=== PATIENT | female | born 1980 | race African-American/Black ===

== ENCOUNTER 2016-10-25 15:35 | Emergency (ER) | payer OTHER ==
[2016-10-25 15:45] VITALS: BP 159/101; PULSE 91; TEMP 98.2; BMI 35.4
[2016-10-25] MEDS ORDERED: predniSONE 20 MG TABLET (UD) PO ONE (16:32)
[2016-10-25] MEDS ORDERED: predniSONE 20 MG TABLET (UD) ONE (16:35)
[2016-10-25] MEDS ORDERED: ALBUTEROL SO4 2.5/IPRATROPIUM 0.5 INH SOL 3 ML VIAL.NEB. NEB ONE (16:36)
[2016-10-25] MEDS: ALBUTEROL SO4 2.5/IPRATROPIUM 0.5 INH SOL 3 ML VIAL.NEB. NEB SCH ×4 (16:39→17:41)
--- NOTE | 2016-10-25 16:41 | PDOC ---
History of Present Illness - General Chief Complaint: Asthma Stated Complaint: DIFFICULTY BREATHING Time Seen by Provider: 10/25/16 16:11 History Source: Patient - History of Present Illness Timing/Duration: reports: this afternoon Associated Symptoms: reports: shortness of breath. denies: chest pain/soreness , cough, fever/chills, wheezing Past History - Past Medical History Allergies/Adverse Reactions: Allergies Allergy/AdvReac Type Severity Reaction Status Date / Time No Known Allergies Allergy Verified 10/25/16 15:43 Home Medications: Ambulatory Orders Albuterol Sulfate Inhaler - [Ventolin Hfa Inhaler -] 1 - 2 inh PO Q4H #1 inhaler 10/25/16 Prednisone [Deltasone -] 40 mg PO DAILY #8 tablet 10/25/16 Anemia: No Asthma: Yes Suicide Attempt (Hx): No Seizures: No - Psycho/Social/Smoking Cessation Hx Anxiety: No Suicidal Ideation: No Smoking Status: Yes Smoking History: Never smoked Have you smoked in the past 12 months: No Number of Cigarettes Smoked Daily: 1 Information on smoking cessation initiated: No Hx Alcohol Use: No Drug/Substance Use Hx: No Substance Use Type: None Review of Systems - Review of Systems Constitutional: No: Chills, Fever Respiratory: Yes: Shortness of Breath. No: Cough, Wheezing Cardiac (ROS): No: Chest Pain, Lightheadedness, Palpitations Psychiatric: Yes: Other (no SI) *Physical Exam - Vital Signs Last Vital Signs Temp Pulse Resp BP Pulse Ox 98.2 F 91 H 20 159/101 98 10/25/16 15:43 10/25/16 15:43 10/25/16 15:43 10/25/16 15:43 10/25/16 15:43 - Physical Exam General Appearance: Yes: Appropriately Dressed. No: Apparent Distress HEENT: positive: Normal Voice Neck: positive: Supple Respiratory/Chest: positive: Lungs Clear, Normal Breath Sounds. negative: Respiratory Distress Cardiovascular: positive: Regular Rate, S1, S2 Extremity: positive: Normal Inspection Integumentary: positive: Dry, Warm Neurologic: positive: Fully Oriented, Alert, Other (appears disheveled w/ bizarre affect ) Medical Decision Making - Medical Decision Making 10/25/16 16:34 36-year-old obesed female, undomiciled, DM, HTN not on medications "because doctors do want to see me" as per pt, unclear psych hx (unclear from prior documentation/visits but possible schizophrenia vs bipolar based on affect), pt denies psychiatric illness at this time and then states "it's free medical knowledge", here w/ sob today similar to her asthma and states she ran out of her ventolin. No chest tightness or wheezing. Denies admissions for asthma or intubation. Pt requesting "a room" upstairs as she does not have a place to go and also requesting "a hot meal" in ED See exam ?True asthma exacerbation vs malingering (has unclear psych hx and odd affect in ED) Hypertensive (not on meds), stable otherwise w/ clear chest/lungs -nebs -pred -reassess 10/25/16 16:43 10/25/16 16:52 10/25/16 16:53 10/25/16 17:39 Pt improved w/ nebs. Lungs remain clear and able to ambulate without sob. Evaluated by ED SW who gave pt some resources. Pt also given psych and PMD f/u 10/25/16 17:44 *DC/Admit/Observation/Transfer Diagnosis at time of Disposition: Asthma attack - Discharge Dispostion Disposition: HOME Condition at time of disposition: Improved - Prescriptions Prescriptions: Prednisone [Deltasone -] 40 mg PO DAILY #8 tablet Albuterol Sulfate Inhaler - [Ventolin Hfa Inhaler -] 1 - 2 inh PO Q4H #1 inhaler - Referrals Referrals: Adin Li MD [Staff Physician] - Sena Ross MD [Staff Physician] - - Patient Instructions Printed Discharge Instructions: Asthma -- Adult Additional Instructions: Please follow up with Dr Li for management of your chronic medical conditions Please follow up with Dr Ross of psychiatry
== END 2016-10-25 17:42 | disposition home or self-care (01) ==
LOC: JERFT 15:35
DX: J45.901 Unspecified asthma with (acute) exacerbation (principal); I10 Essential (primary) hypertension; E11.9 Type 2 diabetes mellitus without complications
CPT/HCPCS: 99281-25

== ENCOUNTER 2017-02-27 11:13 | Emergency (ER) | payer OTHER ==
[2017-02-27 11:26] VITALS: BP 156/97; PULSE 100; TEMP 98.8; BMI 31.8
--- NOTE | 2017-02-27 12:57 | PDOC ---
History of Present Illness - General Chief Complaint: Asthma Stated Complaint: SOB Time Seen by Provider: 02/27/17 12:48 History Source: Patient Exam Limitations: No Limitations - History of Present Illness Initial Comments: 02/27/17 12:58 Patient is a 36 yo F with hx of asthma, bipolar/schizophrenia presents to [facility] with "shortness of breath" requesting nebulizer treatment and "prednisone to increase the oxygen in my brain." Currently does not have any albuterol. SOCIAL HISTORY: Does smoke, no alcohol or illicit drug use SURGICAL HISTORY: Denies] Past Medical History: Asthma, schizophrenia and bipolar disorder patient denies all Allergies: No known allergies PCP, patient reports her doctor does not want to see her. Review of Systems GENERAL/CONSTITUTIONAL: [No fever or chills. No weakness. No weight change.] HEAD, EYES, EARS, NOSE AND THROAT: [No change in vision. No ear pain or discharge. No sore throat. ] CARDIOVASCULAR: [No chest pain or shortness of breath.] RESPIRATORY: [No cough, reports wheezing, no hemoptysis.] GASTROINTESTINAL: [No nausea, vomiting, diarrhea or constipation. No rectal bleeding.] GENITOURINARY: [No dysuria, frequency, or change in urination.] MUSCULOSKELETAL: [No joint or muscle swelling or pain. No neck or back pain.] SKIN : [No rash or easy bruising.] NEUROLOGIC: [No headache, vertigo, loss of consciousness, or loss of sensation.] PSYCHIATRIC: [No depression or anxiety.] ENDOCRINE: [No increased thirst. No abnormal weight change.] HEMATOLOGIC/LYMPHATIC: [No anemia, easy bleeding, or history of blood clots.] ALLERGIC/IMMUNOLOGIC: [No hives or skin allergy. No latex allergy.] Physical Exam: GENERAL: [The patient is awake, alert, and fully oriented, in no acute distress. ] EYES: [Pupils equal, round and reactive to light, extraocular movements intact, sclera anicteric, conjunctiva clear.] ENT: [Ears normal, nares patent, oropharynx clear without exudates. Moist mucous membranes. No uvula deviation] NECK: [Normal range of motion, supple without lymphadenopathy, JVD, or masses.] LUNGS: [Breath sounds equal, clear to auscultation bilaterally. No wheezes, and no crackles.] HEART: [Regular rate and rhythm, normal S1 and S2 without murmur, rub or gallop. ] ABDOMEN: [Soft, nontender, normoactive bowel sounds. No guarding, no rebound. No masses. No bruising or abrasions] MUSCULOSKELETAL: [Normal range of motion, no edema. No clubbing or cyanosis. No cords, erythema, or tenderness. No CVA Tenderness with fist.] NEUROLOGICAL: [Cranial nerves II through XII grossly intact. Normal speech, normal gait.] SKIN: [Warm, Dry, normal turgor, no rashes or lesions noted.] Past History - Past Medical History Allergies/Adverse Reactions: Allergies Allergy/AdvReac Type Severity Reaction Status Date / Time No Known Allergies Allergy Verified 02/27/17 11:21 Home Medications: Ambulatory Orders Albuterol Sulfate Inhaler - [Ventolin HFA Inhaler -] 1 - 2 inh PO Q4H #1 inhaler 02/27/17 Anemia: No Asthma: Yes COPD: No DVT: No Psychiatric Problems: Yes Seizures: No - Suicide/Smoking/Psychosocial Hx Smoking Status: Yes Smoking History: Never smoked Have you smoked in the past 12 months: No Number of Cigarettes Smoked Daily: 0 Information on smoking cessation initiated: No Hx Alcohol Use: No Drug/Substance Use Hx: No Substance Use Type: None *Physical Exam - Vital Signs Last Vital Signs Temp Pulse Resp BP Pulse Ox 98.8 F 100 H 18 156/97 98 02/27/17 11:21 02/27/17 11:21 02/27/17 11:21 02/27/17 11:21 02/27/17 11:21 Medical Decision Making - Medical Decision Making 02/27/17 13:02 A/P: Patient here "requesting a pill to make her brain get more oxygen" patient noted with flight of ideas upon arrival, when asking questions patient does not answer appropriately. Requesting medication to melt fat on the back of her head and requesting Adipex-P. Patient wants to be admitted for " medication in her blood that will make her lose weight." I've advised patients she is to follow- up with scientific research associate and PMD as an outpatient for this medication. Does have history of schizophrenia and bipolar disorder denies feelings of hurting self or others. No suicidal ideation. On physical examination patient with clear lungs, no wheezing. I have explained to patient that there is no pill that will increase oxygen to her brain I will give her a Combivent treatment, then DC with albuterol since she has run out. Patient's physical examination is benign she is in no acute distress. Patient to follow-up with PMD. *DC/Admit/Observation/Transfer Diagnosis at time of Disposition: Asthma Qualifiers: Asthma severity: mild Asthma persistence: unspecified Asthma complication type : uncomplicated Qualified Code(s): J45.909 - Unspecified asthma, uncomplicated - Discharge Dispostion Disposition: HOME Condition at time of disposition: Stable Admit: No - Prescriptions Prescriptions: Albuterol Sulfate Inhaler - [Ventolin HFA Inhaler -] 1 - 2 inh PO Q4H #1 inhaler - Referrals Referrals: Terry Padron [Primary Care Provider] - - Patient Instructions Printed Discharge Instructions: Asthma -- Adult Additional Instructions: Recommend following up with her primary care doctor to discuss weight loss and medications. Albuterol as needed for wheezing Medications for asthma as needed as per primary care doctor - Post Discharge Activity
[2017-02-27] MEDS ORDERED: ALBUTEROL SO4 2.5/IPRATROPIUM 0.5 INH SOL 3 ML VIAL.NEB. NEB ONE ×2 (13:00→13:03)
== END 2017-02-27 13:28 | disposition home or self-care (01) ==
LOC: JERFT 11:13
PROC: 3E0F7GC Introduction of Other Therapeutic Substance into Respiratory Tract, Via Natural or Artificial Opening (ICD-10-PCS; principal; 2017-02-27)
DX: J45.909 Unspecified asthma, uncomplicated (principal); F31.89 Other bipolar disorder; F20.9 Schizophrenia, unspecified
CPT/HCPCS: 94640; 99281-25

== ENCOUNTER 2017-12-09 16:17 | Emergency (ER) | payer OTHER ==
[2017-12-09 16:21] VITALS: BP 164/114; PULSE 89; TEMP 97.9; BMI 37.2
[2017-12-09] MEDS ORDERED: ALBUTEROL SO4 2.5/IPRATROPIUM 0.5 INH SOL 3 ML VIAL.NEB. NEB ONE ×2 (17:05→17:39)
[2017-12-09] MEDS ORDERED: SODIUM CHLORIDE FOR INHALATION 3 ML VIAL.NEB IH ONE (17:06)
--- NOTE | 2017-12-09 17:06 | PDOC ---
History of Present Illness - General Chief Complaint: Sore Throat Stated Complaint: Asthma Time Seen by Provider: 12/09/17 16:54 - History of Present Illness Initial Comments: 12/09/17 17:05 CHIEF COMPLAINT: sore throat, "need face mask thing" HISTORY OF PRESENT ILLNESS: 36 yo F with hx of asthma, bipolar/schizophrenia [facility] with "shortness of breath" requesting "face mask treatment" and "bump on my tongue and definitely strep throat." Denies fever, chills, vomiting, diarrhea. PAST MEDICAL HISTORY: Denies past medical history FAMILY HISTORY: Denies SOCIAL HISTORY: Denies tobacco, alcohol, illicit drug use. SURGICAL HISTORY: Denies ALLERGIES: No known drug allergies REVIEW OF SYSTEMS General/Constitutional: Denies fever or chills. HEENT: "Strep throat, bump on my tongue." Denies change in vision. Denies ear pain or discharge. Cardiovascular: Denies chest pain. Respiratory: "A little shortness of breath. " PHYSICAL EXAM General Appearance: Well-appearing, appropriately dressed. No apparent distress. HEENT: No lesions, bump or nodules appreciated to tongue on exam. No exudate, swelling, or erythema to tonsils b/l. EOMI, PERRLA. No conjunctival pallor. No photophobia, scleral icterus. Respiratory/Chest: Lungs CTAB. Cardiovascular: RRR. S1, S2. Neurologic: food and beverage server II-XII intact. Fully oriented, alert. Motor strength 5/5. No appreciable EOM palsy, facial droop or sensory deficit. Past History - Past Medical History Allergies/Adverse Reactions: Allergies Allergy/AdvReac Type Severity Reaction Status Date / Time No Known Allergies Allergy Verified 12/09/17 16:21 Home Medications: Ambulatory Orders Albuterol Sulfate Inhaler - [Ventolin HFA Inhaler -] 1 - 2 inh PO Q4H #1 inhaler 02/27/17 Albuterol Sulfate Inhaler - [Ventolin HFA Inhaler -] 1 - 2 inh PO Q4H #1 inhaler 12/09/17 Benzonatate [Tessalon Pearls -] 100 mg PO TID PRN #21 capsule 12/09/17 Anemia: No Asthma: Yes COPD: No DVT: No Psychiatric Problems: Yes Seizures: No - Suicide/Smoking/Psychosocial Hx Smoking Status: Yes Smoking History: Never smoked Have you smoked in the past 12 months: No Number of Cigarettes Smoked Daily: 0 Hx Alcohol Use: No Drug/Substance Use Hx: No Substance Use Type: None *Physical Exam - Vital Signs Last Vital Signs Temp Pulse Resp BP Pulse Ox 97.9 F 89 18 164/114 H 99 12/09/17 16:19 12/09/17 16:19 12/09/17 16:19 12/09/17 16:19 12/09/17 16:19 Medical Decision Making - Medical Decision Making 12/09/17 17:09 36 yo F with hx of asthma, bipolar/schizophrenia presents to [facility] with "shortness of breath" requesting "face mask treatment" and "bump on my tongue and definitely strep throat." -saline neb treatment *DC/Admit/Observation/Transfer Diagnosis at time of Disposition: Cough - Discharge Dispostion Disposition: HOME Condition at time of disposition: Stable Decision to Admit order: No - Prescriptions Prescriptions: Albuterol Sulfate Inhaler - [Ventolin HFA Inhaler -] 1 - 2 inh PO Q4H #1 inhaler Benzonatate [Tessalon Pearls -] 100 mg PO TID PRN #21 capsule PRN Reason: Cough - Referrals Referrals: Terry Padron [Primary Care Provider] - - Patient Instructions Printed Discharge Instructions: DI for Shortness of Breath Additional Instructions: Please follow up with your primary care doctor this week. If you develop any new or worsening symptoms, please return to the ER. - Post Discharge Activity
[2017-12-09] MEDS ORDERED: LORATADINE 10 MG TABLET PO ONE (17:38)
[2017-12-09] MEDS ORDERED: LORATADINE 10 MG TABLET ONE (17:39)
== END 2017-12-09 18:09 | disposition home or self-care (01) ==
LOC: JERFT 16:17
PROC: 3E0F7GC Introduction of Other Therapeutic Substance into Respiratory Tract, Via Natural or Artificial Opening (ICD-10-PCS; principal; 2017-12-09)
PROC: 3E0F7GC Introduction of Other Therapeutic Substance into Respiratory Tract, Via Natural or Artificial Opening (ICD-10-PCS; 2017-12-09)
DX: J45.901 Unspecified asthma with (acute) exacerbation (principal); F31.9 Bipolar disorder, unspecified; F20.9 Schizophrenia, unspecified
CPT/HCPCS: 94640; 99281-25; J7620

== ENCOUNTER 2018-05-17 12:35 | Emergency (ER) | payer OTHER ==
[2018-05-17 12:42] VITALS: BP 153/98; PULSE 88; TEMP 98.7; BMI 35.4
--- NOTE | 2018-05-17 12:52 | PDOC ---
History of Present Illness - General Chief Complaint: [facility] [place] Stated Complaint: TEST Time Seen by Provider: 05/17/18 12:45 History Source: Patient Exam Limitations: No Limitations - History of Present Illness Travel History: No Initial Comments: 05/17/18 13:04 Patient came for evaluation of potential . had unprotected sex with known partner 3 days ago and was worried may be . States was not anticipating however would be okay if it turns positive. Patient denies partner with any symptoms, she denies any symptoms including no breast 10 tenderness, nausea or vomiting, or missed periods. Pain Radiation: reports: no radiation Activities at Onset: reports: none Past History - Travel Traveled outside of the country in the last 30 days: No Close contact w/someone who was outside of country & ill: No - Past Medical History Allergies/Adverse Reactions: Allergies Allergy/AdvReac Type Severity Reaction Status Date / Time No Known Allergies Allergy Verified 05/17/18 12:39 Home Medications: Ambulatory Orders Albuterol Sulfate Inhaler - [Ventolin HFA Inhaler -] 1 - 2 inh PO Q4H #1 inhaler 02/27/17 Anemia: No Asthma: Yes COPD: No DVT: No Psychiatric Problems: Yes Seizures: No - Suicide/Smoking/Psychosocial Hx Smoking Status: Yes Smoking History: Never smoked Have you smoked in the past 12 months: No Number of Cigarettes Smoked Daily: 0 Information on smoking cessation initiated: No Hx Alcohol Use: No Drug/Substance Use Hx: No Substance Use Type: None Abd/GI Specific PMHX - Complaint Specific PMHX Colitis: No Diverticulitis: No Gall Bladder Disease: No GERD: No Hepatitis: No Irritable Bowel Synd (IBS): No Pancreatitis: No GI Ulcer Disease: No Review of Systems - Review of Systems Able to Perform ROS?: Yes Is the patient limited Mohawk proficient: Yes Constitutional: Yes: See HPI. No: Symptoms Reported, Malaise, Weight Stable HEENTM: Yes: See HPI. No: Symptoms Reported Respiratory: Yes: See HPI. No: Symptoms reported, Cough Cardiac (ROS): No: Symptoms Reported ABD/GI: Yes: See HPI. No: Symptoms Reported, Nausea, Vomiting : Yes: See HPI. No: Symptoms Reported, Burning, Dysuria, Discharge, Frequency All Other Systems: Reviewed and Negative *Physical Exam - Vital Signs Last Vital Signs Temp Pulse Resp BP Pulse Ox 98.7 F 88 18 153/98 100 05/17/18 12:39 05/17/18 12:39 05/17/18 12:39 05/17/18 12:39 05/17/18 12:39 - Physical Exam General Appearance: Yes: Nourished, Appropriately Dressed, Apparent Distress HEENT: positive: BLANCA, Normal ENT Inspection, TMs Normal, Pharynx Normal Neck: positive: Supple. negative: Tender, Lymphadenopathy (R), Lymphadenopathy (L) Respiratory/Chest: positive: Lungs Clear, Normal Breath Sounds Gastrointestinal/Abdominal: positive: Normal Bowel Sounds, Soft. negative: Tender Extremity: positive: Normal Capillary Refill, Normal Inspection Integumentary: positive: Dry, Warm, Pale Neurologic: positive: manager special events II-XII NML intact, Fully Oriented, Alert, Normal Mood/ Affect, Normal Response, Motor Strength 5/5 Moderate Sedation - Procedure Monitoring Vital Signs: Procedure Monitoring Vital Signs Temperature 98.7 F 05/17/18 12:39 Pulse Rate 88 05/17/18 12:39 Respiratory Rate 18 05/17/18 12:39 Blood Pressure 153/98 05/17/18 12:39 O2 Sat by Pulse Oximetry (%) 100 05/17/18 12:39 *DC/Admit/Observation/Transfer Diagnosis at time of Disposition: Well adult exam - Discharge Dispostion Disposition: HOME Condition at time of disposition: Stable Decision to Admit order: No - Referrals Referrals: Martin Denton MD [Staff Physician] - - Patient Instructions Additional Instructions: With ST[facility] GR[facility]ER in 2-3 weeks when hormones of TODAYS TEST NEGATIVE - Post Discharge Activity
== END 2018-05-17 13:16 | disposition home or self-care (01) ==
LOC: JERFT 12:35
DX: Z32.02 Encounter for pregnancy test, result negative (principal); F99 Mental disorder, not otherwise specified
CPT/HCPCS: 84703; 99281-25

== ENCOUNTER 2018-08-10 17:54 | Emergency (ER) | payer OTHER ==
[2018-08-10 18:15] VITALS: BP 172/111; PULSE 100; TEMP 99; BMI 38.9
--- NOTE | 2018-08-10 18:31 | PDOC ---
History of Present Illness - General Chief Complaint: Cold Symptoms Stated Complaint: cough Time Seen by Provider: 08/10/18 18:09 History Source: Patient Exam Limitations: No Limitations - History of Present Illness Initial Comments: 08/10/18 18:31 38y F hx of asthma, bipolar/schizophrenia presents with sore throat, cough productive of mucus for several days without associated fever/chills, oneill, cp, n /v, hemoptysis, leg swelling, calf pain, abd pain. Pt denies any recent travel but notes that her mother had similar symptoms. ROS: General: no fever/chills HEENT: +sore throat, no nasal congestion, no headache, no ear pain RESP: +Cough prod of white sputum, denies SOB, ONEILL, hemoptysis CARD: denies cp, oneill EXT: denies leg swelling, calf pain Physical Exam: General: well appearing, no distress HEENT: mild eryhthema in posterior pharynx w/o exudates, no fullness, symetric tonislar arch, no cervical lympadenopathy CARD: rrr, no mrg PULM: cta b/l, no resp distress, speaking complete sentences ABD: soft nontender, no rebound/guarding EXT: NO edema, no calf tenderness, neg homans suspect URI will swab for strep will give robitussin for her cough PMD fu Past History - Past Medical History Allergies/Adverse Reactions: Allergies Allergy/AdvReac Type Severity Reaction Status Date / Time No Known Allergies Allergy Verified 08/10/18 18:24 Home Medications: Ambulatory Orders Albuterol Sulfate Inhaler - [Ventolin HFA Inhaler -] 1 - 2 inh PO Q4H PRN #1 inhaler 08/10/18 Anemia: No Asthma: Yes COPD: No DVT: No Psychiatric Problems: Yes Seizures: No - Suicide/Smoking/Psychosocial Hx Smoking Status: Yes Smoking History: Never smoked Have you smoked in the past 12 months: No Number of Cigarettes Smoked Daily: 0 Hx Alcohol Use: No Drug/Substance Use Hx: No Substance Use Type: None *Physical Exam - Vital Signs Last Vital Signs Temp Pulse Resp BP Pulse Ox 99 F 100 H 20 172/111 H 96 08/10/18 18:03 08/10/18 18:03 08/10/18 18:03 08/10/18 18:03 08/10/18 18:03 Medical Decision Making - Medical Decision Making 08/10/18 19:29 rapid strep negative supportive care at home I discussed the physical exam findings, ancillary test results and final diagnoses with the patient. I answered all of the patient's questions. The patient was satisfied with the care received and felt comfortable with the discharge plan and treatment plan. The patient will call their primary care physician within 24 hours to arrange follow-up and will return to the Emergency Department with any new, persistent or worsening symptoms. *DC/Admit/Observation/Transfer Diagnosis at time of Disposition: Upper respiratory infection Qualifiers: URI type: unspecified URI Qualified Code(s): J06.9 - Acute upper respiratory infection, unspecified Hypertension Qualifiers: Hypertension type: unspecified Qualified Code(s): I10 - Essential (primary) hypertension - Discharge Dispostion Disposition: HOME Condition at time of disposition: Stable Decision to Admit order: No - Prescriptions Prescriptions: Albuterol Sulfate Inhaler - [Ventolin HFA Inhaler -] 1 - 2 inh PO Q4H PRN #1 inhaler PRN Reason: Shortness Of Breath - Referrals Referrals: Tito Florian [Primary Care Provider] - - Patient Instructions Printed Discharge Instructions: DI for Viral Upper Respiratory Infection -- Adult Additional Instructions: Return to the emergency department immediately with ANY new, persistent or worsening symptoms. Take Guafenicen for your cough. Take motrin or tyelnol for your sore throat. Your Blood pressure is elevated here inthe ED today. Please follow up with your doctor to have this rechecked and for further evaluation. You MUST call and follow up with your doctor in 3-4 days for further evaluation of your symptoms. Results were discussed with you. Please make sure your doctor reviews the results of your emergency evaluation. - Post Discharge Activity
[2018-08-10] MEDS ORDERED: guaiFENesin/D-METHORPHAN HB 10 ML UNIT-DOSE CUPS ONE (18:34)
[2018-08-10] MEDS ORDERED: guaiFENesin/D-METHORPHAN HB 10 ML UNIT-DOSE CUPS PO ONE (18:34)
[2018-08-10] MEDS: guaiFENesin 200 MG/10 ML 10 ML UNIT-DOSE CUPS PO ONE ×2 (18:37)
[2018-08-10] MEDS ORDERED: ALBUTEROL SO4 0.083% IH SOL 2.5 MG/3 ML VIAL.NEB. NEB ONE ×2 (19:35→19:43)
== END 2018-08-10 19:53 | disposition home or self-care (01) ==
LOC: JERFT 17:54 → JER 17:54 → JERFT 19:53
PROC: 3E0F7GC Introduction of Other Therapeutic Substance into Respiratory Tract, Via Natural or Artificial Opening (ICD-10-PCS; principal; 2018-08-10)
DX: J06.9 Acute upper respiratory infection, unspecified (principal); I10 Essential (primary) hypertension; J45.909 Unspecified asthma, uncomplicated
CPT/HCPCS: 87070; 87077; 87880; 94640; 99281-25

== ENCOUNTER 2018-08-20 13:53 | Emergency (ER) | payer OTHER | END 2018-08-20 15:02 | disposition home or self-care (01) | LOC: JERFT 13:53 ==

== ENCOUNTER 2019-01-05 15:31 | Emergency (ER) | payer OTHER ==
[2019-01-05 15:37] VITALS: BP 150/96; PULSE 106; TEMP 98; BMI 37.2
--- NOTE | 2019-01-05 15:44 | PDOC ---
History of Present Illness - General Chief Complaint: Headache Stated Complaint: HEADACHE Time Seen by Provider: 01/05/19 15:41 - History of Present Illness Initial Comments: 01/05/19 15:43 CHIEF COMPLAINT: scalp problem HISTORY OF PRESENT ILLNESS: 38 yo F with hx of bipolar/schizophrenia [facility] with concerns of her "scalp not sticking to her skin." She states she has had the problem for 7-10 years and has seen her primary care doctor "who said he don't want to see me no more." She requests "diet pills that make the skin stick to my head better" and "an x-ray or a catscan to see what's wrong with my scalp." No recent travel or sick contacts. PAST MEDICAL HISTORY: Denies past medical history FAMILY HISTORY: Denies SOCIAL HISTORY: Denies tobacco, alcohol, illicit drug use. SURGICAL HISTORY: Denies ALLERGIES: No known drug allergies REVIEW OF SYSTEMS General/Constitutional: Denies fever or chills. Denies weakness, weight change. HEENT: "My scalp isn't sticking o my skin." Denies change in vision. Denies ear pain or discharge. Denies sore throat. Cardiovascular: Denies chest pain or shortness of breath. Respiratory: Denies cough, wheezing, or hemoptysis. Gastrointestinal: Denies nausea, vomiting, diarrhea or constipation. Denies rectal bleeding. Genitourinary: Denies dysuria, frequency, or change in urination. Musculoskeletal: Denies joint or muscle swelling or pain. Denies neck or back pain. Skin and breasts: Denies rash or easy bruising. Neurologic: Headache. Denies vertigo, loss of consciousness, or loss of sensation. PHYSICAL EXAM General Appearance: Well-appearing, appropriately dressed. No apparent distress , no intoxication. HEENT: EOMI, PERRLA, normal ENT inspection, normal voice, TMs normal, pharynx normal. No conjunctival pallor. No photophobia, scleral icterus. Neck: Supple. Trachea midline. No tenderness, rigidity, carotid bruit, stridor , lymphadenopathy, or thyromegaly. Respiratory/Chest: Lungs CTAB. No shortness of breath, chest tenderness, respiratory distress, accessory muscle use. No crackles, rales, rhonchi, stridor , wheezing, dullness Cardiovascular: RRR. S1, S2. No JVD, murmur, bradycardia, tachycardia. Vascular Pulses: Dorsalis-Pedis (R): 2+, Dorsalis-Pedis (L): 2+ Gastrointestinal/Abdominal: Normal bowel sounds. Abdomen soft, non-distended. No tenderness or rebound tenderness. No organomegaly, pulsatile mass, guarding , hernia, hepatomegaly, splenomegaly. Lymphatic: No adenopathy, tenderness. Musculoskeletal/Extremities: Normal inspection. FROM of all extremities, normal capillary refill. Pelvis Stable. No CVA tenderness. No tenderness to extremities, pedal edema, swelling, erythema or deformity. Integumentary: Appropriate color, dry, warm. 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 Fully oriented, alert. Appropriate mood/affect. Motor strength 5/5. No appreciable EOM palsy, facial droop or sensory deficit. Psychiatric: Patient speaking in nonsensical language, persistently requesting x -rays and ctscans and claiming her scalp "is not sticking to her skin." Past History - Past Medical History Allergies/Adverse Reactions: Allergies Allergy/AdvReac Type Severity Reaction Status Date / Time No Known Allergies Allergy Verified 01/05/19 15:38 Home Medications: Ambulatory Orders Albuterol Sulfate Inhaler - [Ventolin HFA Inhaler -] 1 - 2 inh PO Q4H PRN #1 inhaler 08/10/18 Guaifenesin Dm [Robitussin Dm -] 10 ml PO Q8H PRN #1 bottle 08/10/18 Amoxicillin - [Amoxicillin 500mg Capsule -] 500 mg PO BID #14 capsule 08/13/18 Benzonatate [Tessalon Pearls -] 100 mg PO TID PRN #21 capsule 08/20/18 Ipratropium Lyons 2 spray NS BID PRN #1 spray 08/20/18 Methylprednisolone [Medrol Dose Arun] 4 mg PO ASDIR #21 tablet 08/20/18 Albuterol Sulfate Inhaler - [Ventolin HFA Inhaler -] 1 - 2 inh PO Q4H #1 inhaler 01/05/19 Ibuprofen 600 mg PO TID #20 tablet 01/05/19 Anemia: No Asthma: Yes COPD: No DVT: No Psychiatric Problems: Yes Seizures: No - Immunization History Immunization Up to Date: No - Psycho Social/Smoking Cessation Hx Smoking Status: Yes Smoking History: Never smoked Have you smoked in the past 12 months: No Number of Cigarettes Smoked Daily: 0 Hx Alcohol Use: No Drug/Substance Use Hx: No Substance Use Type: None *Physical Exam - Vital Signs Last Vital Signs Temp Pulse Resp BP Pulse Ox 98 F 106 H 18 150/96 99 01/05/19 15:32 01/05/19 15:32 01/05/19 15:32 01/05/19 15:32 01/05/19 15:32 Medical Decision Making - Medical Decision Making 01/05/19 16:14 38 yo F with hx of bipolar/schizophrenia [facility] with concerns of her "scalp not sticking to her skin." Discussed with patient long standing scalp conditions would need to be evaluated by dermatology, patient became irritated and state "I don't want that , I want to come to the emergency room and get this fixed. Can I get some diet pills? Patient then complains of headache but then refuses any medications for headache. Patient given PCP for f/u and further evaluation, patient agrees that she will see new PCP. Discharge - Discharge Information Problems reviewed: Yes Clinical Impression/Diagnosis: Headache Qualifiers: Headache type: unspecified Headache chronicity pattern: unspecified pattern Intractability: not intractable Qualified Code(s): R51 - Headache Condition: Stable Disposition: HOME - Admission No - Additional Discharge Information Prescriptions: Albuterol Sulfate Inhaler - [Ventolin HFA Inhaler -] 1 - 2 inh PO Q4H #1 inhaler Ibuprofen 600 mg PO TID #20 tablet - Follow up/Referral Referrals: [facility] [Provider Group] - Patient Discharge Instructions Patient Printed Discharge Instructions: DI for Headache Additional Instructions: You will need to follow up with a primary care doctor for further evaluation of your chronic scalp concerns. If you develop any new or worsening symptoms, please return to the ER. - Post Discharge Activity
== END 2019-01-05 16:30 | disposition home or self-care (01) ==
LOC: JERFT 15:31
DX: R51 Headache (principal); F20.9 Schizophrenia, unspecified; F32.9 Major depressive disorder, single episode, unspecified; J45.909 Unspecified asthma, uncomplicated
CPT/HCPCS: 99282-25

== ENCOUNTER 2019-09-18 12:38 | Emergency (ER) | payer BC, OTHER ==
[2019-09-18] MEDS ORDERED: ACETAMINOPHEN 500 MG TABLET (FP) PO ONE (12:52)
--- NOTE | 2019-09-18 12:54 | PDOC ---
Rapid Medical Evaluation Time Seen by Provider: 09/18/19 12:50 Medical Evaluation: Allergies Allergy/AdvReac Type Severity Reaction Status Date / Time No Known Allergies Allergy Verified 07/26/19 13:36 09/18/19 12:50 39 year old female with unknown pmhx (states maybe HTN DM) with headache for 3 months worsening over the last couple days. No vision changes, no dizziness, no nausea, vomiting. PE: WNL hypertensive to 200/123 Plan: Tylenol imaging deferred to ED provider Pt to precede to ED for further treatment and care 09/18/19 12:53
[2019-09-18 13:01] VITALS: TEMP 99; BMI 35.4
--- NOTE | 2019-09-18 13:11 | PDOC ---
History of Present Illness - General Chief Complaint: Headache Stated Complaint: HEADACHE Time Seen by Provider: 09/18/19 12:50 History Source: Patient Exam Limitations: No Limitations - History of Present Illness Initial Comments: 39F with hx/o bipolar/schizophrenia and IDDM presents to the ED with headache, stating that she feels that her "scalp is loose" and has "blood clot bumps" on her skin and wants diet pills to get rid of them. She states that her headache is located in the back of the head only. She also reports diffuse chest pain, non radiating, constant since she arrived which she attributes to being nervous. She also reports lightheadedness and dizziness. Denies SOB, nausea, vomiting, numbness, tingling, weakness or syncope. PCP: Dr. Deuce Duke (?) PMH: See HPI SH: none Allergies: NKDA Meds: insulin, metformin, ASA Soc: neg x3 ROS GENERAL/CONSTITUTIONAL: No fever or chills. No weakness. HEENT: No change in vision. CARDIOVASCULAR: +chest pain, no shortness of breath RESPIRATORY: No cough, wheezing, or hemoptysis GASTROINTESTINAL: No nausea, vomiting, diarrhea or constipation. GENITOURINARY: No dysuria, frequency, or change in urination. MUSCULOSKELETAL: No joint or muscle swelling or pain. No neck or back pain. SKIN: No rash NEUROLOGIC: +headache, no vertigo, LOC, or change in strength/sensation. HEMATOLOGIC/LYMPHATIC: No anemia, easy bleeding, or history of blood clots. PE GENERAL: Awake, alert, and fully oriented, in no acute distress; bizarre affect HEAD: No signs of trauma, normocephalic, atraumatic; no signs of skin infection or erythema EYES: PERRLA, EOMI, sclera anicteric, conjunctiva clear ENT: Auricles normal inspection, hearing grossly normal, nares patent, oropharynx clear without exudates. Moist mucosa NECK: Normal ROM, supple, no LAD, JVD, or masses HEART: RRR, normal S1 and S2, no murmurs, rubs or gallops, peripheral pulses normal and equal bilaterally. LUNGS: No distress, speaks full sentences, clear to auscultation bilaterally ABDOMEN: Soft, nontender, normoactive bowel sounds. No guarding, no rebound. No masses EXTREMITIES: Normal inspection, Normal range of motion, no edema. No clubbing or cyanosis. NEUROLOGICAL: CNII-XII grossly intact. Normal speech, normal gait, no focal sensorimotor deficits SKIN: Warm, Dry, normal turgor, no rashes or lesions noted Past History - Medical History Allergies/Adverse Reactions: Allergies Allergy/AdvReac Type Severity Reaction Status Date / Time No Known Allergies Allergy Verified 09/18/19 12:56 Home Medications: Ambulatory Orders Albuterol Sulfate Inhaler - [Ventolin HFA Inhaler -] 1 - 2 inh PO Q4H PRN #1 inhaler 08/10/18 Guaifenesin Dm [Robitussin Dm -] 10 ml PO Q8H PRN #1 bottle 08/10/18 Amoxicillin - [Amoxicillin 500mg Capsule -] 500 mg PO BID #14 capsule 08/13/18 Benzonatate [Tessalon Pearls -] 100 mg PO TID PRN #21 capsule 08/20/18 Ipratropium Harold 2 spray NS BID PRN #1 spray 08/20/18 Methylprednisolone [Medrol Dose Arun] 4 mg PO ASDIR #21 tablet 08/20/18 Albuterol Sulfate Inhaler - [Ventolin HFA Inhaler -] 1 - 2 inh PO Q4H #1 inhaler 01/05/19 Ibuprofen 600 mg PO TID #20 tablet 01/05/19 Miconazole Nitrate [Monistat 7] 45 gm VG DAILY 7 Days #7 cream.appl 07/26/19 Amlodipine Besylate [Norvasc -] 10 mg PO DAILY #7 tablet 09/18/19 Anemia: No Asthma: Yes COPD: No DVT: No Diabetes: Yes HTN: Yes Psychiatric Problems: Yes Seizures: No - Immunization History Immunization Up to Date: No - Psycho-Social/Smoking History Smoking Status: Yes Smoking History: Never smoked Have you smoked in the past 12 months: No Number of Cigarettes Smoked Daily: 0 *Physical Exam - Vital Signs Last Vital Signs Temp Pulse Resp BP Pulse Ox 99 F 105 H 18 200/123 H 98 09/18/19 12:46 09/18/19 12:46 09/18/19 12:46 09/18/19 12:46 09/18/19 12:46 ED Treatment Course - LABORATORY CBC & Chemistry Diagram: 09/18/19 13:55 09/18/19 13:55 Medical Decision Making - Medical Decision Making 39F with hx/o bipolar/schizophrenia and IDDM presents to the ED with headache, stating that she feels that her "scalp is loose" and has "blood clot bumps" on her skin and wants diet pills to get rid of them. Exam of the scalp was unremarkable and neuro exam intact. Troponin negative. Noncontrast head CT was negative. CBC was unremarkable. CMP was remarkable for glucose of 454, and was given 1L NS. Blood pressure was 213/120 and given 10mg amlodipine, repeat blood pressure was 181/106. Patient is stable for discharged and advised to follow up with PCP. Discharge - Discharge Information Problems reviewed: Yes Clinical Impression/Diagnosis: Hypertension Qualifiers: Hypertension type: unspecified Qualified Code(s): I10 - Essential (primary) hypertension Condition: Stable Disposition: HOME - Admission No - Additional Discharge Information Prescriptions: Amlodipine Besylate [Norvasc -] 10 mg PO DAILY #7 tablet - Follow up/Referral Referrals: Oj Mccray MD [Staff Physician] - CallBack Reminder: lab result - Patient Discharge Instructions Patient Printed Discharge Instructions: DI for Malignant Hypertension Additional Instructions: You came into the ED because you were concerned of a headache and infection of your scalp and wanted imaging, which was normal. We gave you medication for blood pressure and fluids, which improved your blood pressure. You will be sent home with prescription for blood pressure. Return to the ED if your headache worsens, if you pass out, or become lightheaded. Follow up with the primary care doctor that we referred you to. - Post Discharge Activity
[2019-09-18] MEDS ORDERED: ACETAMINOPHEN 500 MG TABLET (FP) ONE (13:32)
[2019-09-18 14:32] LABS: BASO % 0.8 % (0-2.0); EOS % 0.6 % (0-4.5); HEMATOCRIT 45.3 % (32.4-45.2); HEMOGLOBIN 14.6 GM/dL (10.7-15.3); LYMPH % 16.9 % (8-40); MCH 26.2 pg (25.7-33.7); MCHC 32.2 g/dl (32.0-36.0); MEAN CELL VOLUME 81.6 fl (80-96); MEAN PLT VOLUME 9.5 fl (7.5-11.1); MONO % 7.5 % (3.8-10.2); NEUT % 74.2 % (42.8-82.8); PLATELET COUNT 272 K/MM3 (134-434); RBC 5.55 M/mm3 (3.60-5.2); RDW 16.5 % (11.6-15.6); WHITE BLOOD COUNT 9.8 K/mm3 (4.0-10.0)
[2019-09-18 14:39] LABS: METHADONE, UR NEGATIVE ng/ml (CUTOFF=300); OPIATES, URI NEGATIVE ng/ml (CUTOFF=300); PHENCYCLIDINE,URINE NEGATIVE ng/ml (CUTOFF=25); URINE AMPHETAMINES NEGATIVE ng/ml (CUTOFF=500); URINE BARBITURATES NEGATIVE ng/ml (CUTOFF=200); URINE BENZODIAZEPINES NEGATIVE ng/ml (CUTOFF=200)
[2019-09-18 14:45] LABS: COCAINE, UR NEGATIVE ng/ml (CUTOFF=300)
[2019-09-18 14:53] LABS: ALBUMIN 3.4 g/dl (3.4-5.0); ALK PHOS 126 U/L (45-117); ANION GAP 11 MMOL/L (8-16); BILIRUBIN,TOTAL 0.3 mg/dL (0.2-1); BLOOD UREA NITROGEN 7.5 mg/dL (7-18); CALCIUM 9.2 mg/dL (8.5-10.1); CHLORIDE 100 mmol/L (98-107); CO2 24 mmol/L (21-32); CREATININE 0.9 mg/dL (0.55-1.3); POTASSIUM 4.2 mmol/L (3.5-5.1); SGOT/AST 17 U/L (15-37); SGPT/ALT 20 U/L (13-61); SODIUM 134 mmol/L (136-145); TOT PROT 6.6 g/dl (6.4-8.2)
[2019-09-18 15:02] LABS: GLUCOSE,RANDOM 445 mg/dL (74-106)
[2019-09-18] MEDS ORDERED: SODIUM CHLORIDE 0.9% 500 ML INFUS.BAG IV ONE (15:21)
[2019-09-18] MEDS ORDERED: IBUPROFEN 400 MG TABLET (FP) PO ONE ×2 (15:36→15:47)
--- NOTE | 2019-09-18 16:34 | PDOC ---
Documentation entered by Konstantin Tee SCRIBE, acting as scribe for Frantz Rivas MD. Frantz Rivas MD: This documentation has been prepared by the Nay rodríguez Xhesika, SCRIBE, under my direction and personally reviewed by me in its entirety. I confirm that the documentation accurately reflects all work, treatment, procedures, and medical decision making performed by me. Attending Attestation - Resident Resident Name: Steve Hernandez - ED Attending Attestation I have performed the following: I have examined & evaluated the patient, The case was reviewed & discussed with the resident, I agree w/resident's findings & plan, Exceptions are as noted - HPI HPI: 09/18/19 13:14 39 year old female with PMH of bipolar/schizophrenia, IDDM who presents to the ED with headache [id number], worsening the last couple days. pt states her headache is located in the occipital region, and feels like her "head is loose." Pt states he endorsed diffuse chest pain when she arrived to the ED which she reports its from being nervous. Denies fever, chills, cough, nausea, vomiting, and constipation. Allergy: NKDA Social: Denies alcohol, cigarette or drug use. - Physicial Exam PE: 09/18/19 14:19 Vitals: Triage Vital signs reviewed General Appearance: no acute distress, well nourished well developed, Head: Atraumatic, normocephalic Eyes: Pupils equal reactive round, extraocular movement intact Ears: TM's normal bilaterally; Nose: Nares patent bilaterally;no nasal congestion Throat: Posterior oropharynx without erythema, mucous membranes moist, Neck: Supple;No Nuchal rigidity Chest Wall: Nontender Cardiac: Regular rate and rhythm, no murmurs, no rubs, no gallops, Lungs: Clear to auscultation bilateral, good air movement bilaterally, Abdomen: Soft, nondistended, normal bowel sounds, nontender to palpation Extremities: Full range of motion to all extremities, no cyanosis, clubbing, or edema Skin: Warm and dry, no rashes or lesions, no petechiae - Medical Decision Making 09/18/19 16:34 History of bipolar with complaint of headache and hypertension head CT negative for acute pathology Blood pressure improving with time We will arrange for patient to follow-up in our clinic Findings, the need for follow-up and strict return instructions discussed with patient. Discharge - Discharge Information Problems reviewed: Yes Clinical Impression/Diagnosis: Hypertension Qualifiers: Hypertension type: unspecified Qualified Code(s): I10 - Essential (primary) hypertension Condition: Stable Disposition: HOME - Additional Discharge Information Prescriptions: Amlodipine Besylate [Norvasc -] 10 mg PO DAILY #7 tablet - Follow up/Referral Referrals: Oj Mccray MD [Staff Physician] - CallBack Reminder: lab result - Patient Discharge Instructions Patient Printed Discharge Instructions: DI for Malignant Hypertension Additional Instructions: You came into the ED because you were concerned of a headache and infection of your scalp and wanted imaging, which was normal. We gave you medication for blood pressure and fluids, which improved your blood pressure. You will be sent home with prescription for blood pressure. Return to the ED if your headache worsens, if you pass out, or become lightheaded. Follow up with the primary care doctor that we referred you to. - Post Discharge Activity
[2019-09-18] MEDS ORDERED: amLODIPine BESYLATE 10 MG TABLET (FP) PO ONE (16:45)
[2019-09-18] MEDS ORDERED: amLODIPine BESYLATE 5 MG TABLET (FP) ONE (17:05)
[2019-09-18 17:23] VITALS: BP 106/83; PULSE 79
[2019-09-18] MEDS ORDERED: HYDROCHLOROTHIAZIDE 25 MG TABLET (FP) PO ONE (17:54)
--- NOTE | 2019-09-19 11:17 | EKG ---
Test Reason : Blood Pressure : / mmHG Vent. Rate : 080 BPM Atrial Rate : 080 BPM P-R Int : 148 ms QRS Dur : 102 ms QT Int : 380 ms P-R-T Axes : 039 025 031 degrees QTc Int : 438 ms NORMAL SINUS RHYTHM NONSPECIFIC INTRAVENTRICULAR CONDUCTION DEFECT WHEN COMPARED WITH ECG OF 09-JUL-2003 13:31, NO SIGNIFICANT CHANGE WAS FOUND Confirmed by YORDY SINHA MD ([id number]) on 09/19/2019 11:17:13 AM Referred By: Confirmed By:YORDY SINHA MD
== END 2019-09-18 18:35 | disposition home or self-care (01) ==
LOC: JER 12:38
DX: I10 Essential (primary) hypertension (principal)
CPT/HCPCS: 36415; 70450-TC; 80053; 80307; 82962; 84484; 84703; 85025; 87086; 87186; 87491; 87591; 93005; 93010; 99285-25

== ENCOUNTER 2020-03-05 16:41 | Emergency (ER) | payer BC, OTHER ==
[2020-03-05 17:11] VITALS: BMI 37.5
[2020-03-05] MEDS ORDERED: INSULIN REGULAR HUMAN 100 UNITS/ML *VIAL SQ ONE (19:07)
[2020-03-05] MEDS ORDERED: SODIUM CHLORIDE 0.9% 500 ML INFUS.BAG IV ONE (19:08)
[2020-03-05 20:08] LABS: BASO % 0.8 % (0-2.0); HEMATOCRIT 44.6 % (32.4-45.2); HEMOGLOBIN 14.2 GM/dL (10.7-15.3); LYMPH % 22.3 % (8-40); MCH 25.8 pg (25.7-33.7); MCHC 31.9 g/dl (32.0-36.0); MEAN CELL VOLUME 80.9 fl (80-96); MEAN PLT VOLUME 9.2 fl (7.5-11.1); MONO % 7.4 % (3.8-10.2); NEUT % 68.5 % (42.8-82.8); PLATELET COUNT 354 K/MM3 (134-434); RBC 5.51 M/mm3 (3.60-5.2); RDW 14.9 % (11.6-15.6); WHITE BLOOD COUNT 12.4 K/mm3 (4.0-10.0)
[2020-03-05 20:29] LABS: ALBUMIN 3.6 g/dl (3.4-5.0); BLOOD UREA NITROGEN 8.2 mg/dL (7-18); CALCIUM 8.9 mg/dL (8.5-10.1)
[2020-03-05 20:33] LABS: CREATININE 0.7 mg/dL (0.55-1.3)
[2020-03-05 20:34] LABS: BILIRUBIN,TOTAL 0.2 mg/dL (0.2-1); TOT PROT 6.9 g/dl (6.4-8.2)
[2020-03-05 21:43] VITALS: BP 180/95; PULSE 82; TEMP 97.8
== END 2020-03-05 21:42 | disposition home or self-care (01) ==
LOC: JER 16:41
DX: R73.9 Hyperglycemia, unspecified (principal); Z11.52 Encounter for screening for COVID-19
CPT/HCPCS: 36415; 71046-TC-FY; 80053; 82010; 82962; 85025; 99284-25; C9803; U0003

== ENCOUNTER 2020-10-04 15:27 | Emergency (ER) | payer BC, OTHER ==
[2020-10-04 15:43] VITALS: BMI 34.5
[2020-10-04 18:46] VITALS: BP 158/113; PULSE 88; TEMP 98.4
== END 2020-10-04 20:40 | disposition home or self-care (01) ==
LOC: JERFT 15:27 → JER 15:27 → JERFT 20:40
DX: R05 Cough (principal); R03.0 Elevated blood-pressure reading, without diagnosis of hypertension
CPT/HCPCS: 71046-TC-FY; 99283-25

== ENCOUNTER 2021-08-05 17:42 | Emergency (ER) | payer BC, OTHER ==
[2021-08-05 17:50] VITALS: BP 155/104; PULSE 87; TEMP 98.1; BMI 37.2
== END 2021-08-05 18:32 | disposition home or self-care (01) ==
LOC: JERFT 17:42
DX: L98.8 Other specified disorders of the skin and subcutaneous tissue (principal)
CPT/HCPCS: 99282-25

== ENCOUNTER 2021-11-16 17:08 | Emergency (ER) | payer BC, OTHER ==
[2021-11-16 17:21] VITALS: BP 161/89; PULSE 93; RESP 18; TEMP 99.1; BMI 37.2
== END 2021-11-16 19:11 | disposition home or self-care (01) ==
LOC: JERFT 17:08
PROC: 3E023GC Introduction of Other Therapeutic Substance into Muscle, Percutaneous Approach (ICD-10-PCS; principal; 2021-11-16)
DX: R21 Rash and other nonspecific skin eruption (principal); Z20.2 Contact with and (suspected) exposure to infections with a predominantly sexual mode of transmission; Z76.0 Encounter for issue of repeat prescription
CPT/HCPCS: 36415; 87491; 87591; 99284-25

== ENCOUNTER 2021-11-29 11:42 | Emergency (ER) | payer BC, OTHER ==
[2021-11-29 12:05] VITALS: TEMP 98.8; BMI 37.2
[2021-11-29] MEDS ORDERED: BENZOCAINE/MENTH/CETYLPYRD CL 1 EACH LOZENGE MM PRN (12:33)
[2021-11-29] MEDS ORDERED: BENZOCAINE/MENTH/CETYLPYRD CL 1 EACH LOZENGE MM ONE (12:37)
[2021-11-29 14:42] VITALS: BP 170/108; PULSE 100; RESP 20
== END 2021-11-29 14:42 | disposition home or self-care (01) ==
LOC: JER 11:42
DX: R05.3 Chronic cough (principal)
CPT/HCPCS: 71046-TC-FY; 99283-25

== ENCOUNTER 2022-10-29 10:28 | Emergency (ER) | payer OTHER ==
[2022-10-29 10:33] VITALS: BP 158/87; RESP 18; TEMP 99.2; BMI 37.5
[2022-10-29 11:21] VITALS: PULSE 90
== END 2022-10-29 11:23 | disposition home or self-care (01) ==
LOC: JERFT 10:28
DX: R21 Rash and other nonspecific skin eruption (principal); L29.9 Pruritus, unspecified; L81.9 Disorder of pigmentation, unspecified; L53.9 Erythematous condition, unspecified
CPT/HCPCS: 99283-25